=== PATIENT | male | born 1945 | race Caucasian/White ===

== ENCOUNTER 2017-09-11 07:38 | Day surgery (SDC) | payer MEDICARE, OTHER ==
[2017-09-11] MEDS ORDERED: IV LACTATED RINGERS SOLUTION 1,000 ML BAG IV ONE (07:39)
[2017-09-11] MEDS ORDERED: PROPOFOL 200 MG/20 ML BOTTLE IV ONE (07:39)
[2017-09-11] MEDS ORDERED: CEFAZOLIN 1 G VIAL MC ONE (07:39)
[2017-09-11] MEDS ORDERED: EPHEDRINE SULFATE 50 MG/ML AMPUL MC ONE (07:39)
[2017-09-11] MEDS ORDERED: LIDOCAINE HCL 2% 20 ML VIAL MC ONE (07:39)
[2017-09-11] MEDS ORDERED: ONDANSETRON 4 MG/2 ML VIAL IV ONE (07:39)
[2017-09-11 08:26] LABS: BASOPHILS % (AUTO) 1.1 % (0.0-2.0); EOSINOPHILS # (AUTO) 0.1 K/uL (0.0-0.7); EOSINOPHILS % (AUTO) 2.5 % (0.0-7.0); HEMATOCRIT 45.1 % (36.7-47.1); HEMOGLOBIN 15.3 g/dL (12.5-16.3); LYMPHOCYTES # (AUTO) 1.7 K/uL (20.0-40.0); LYMPHOCYTES % (AUTO) 39.4 % (20.5-51.5); MEAN CORPUSCULAR HEMOGLOBIN 31.2 uug (23.8-33.4); MEAN CORPUSCULAR HGB CONC 34 g/dL (32.5-36.3); MONOCYTES # (AUTO) 0.4 K/uL (2.0-10.0); MONOCYTES % (AUTO) 8.2 % (0.0-11.0); NEUTROPHILS # (AUTO) 2.2 K/uL (1.8-8.9); NEUTROPHILS % (AUTO) 48.8 % (38.5-71.5); PLATELET COUNT (AUTO) 94 K/uL (152-348); WHITE BLOOD COUNT (AUTO) 4.4 K/uL (3.6-10.2)
[2017-09-11 08:35] LABS: CARBON DIOXIDE 23 mmol/L (21-32); CHLORIDE 109 mmol/L (98-107); CREATININE 1.2 mg/dL (0.6-1.3); GLUCOSE 107 mg/dL (74-106); POTASSIUM 3.8 mmol/L (3.5-5.1); UREA NITROGEN, BLOOD 27 mg/dL (7-18)
[2017-09-11] MEDS ORDERED: FENTANYL CITRATE 100 MCG/2 ML AMPUL ONE ×2 (08:59→12:04)
[2017-09-11] MEDS ORDERED: MIDAZOLAM HCL 2 MG/2 ML VIAL ONE ×2 (09:00→09:52)
[2017-09-11 09:19] LABS: EOSINOPHILS % (MANUAL) 4 % (0-8); LYMPHOCYTES % (MANUAL) 36 % (20-40); MONOCYTES % (MANUAL) 6 % (2-10); NEUTROPHILS % (MANUAL) 54 % (42-75)
[2017-09-11] MEDS ORDERED: BUPIVACAINE/EPI PF 0.5% 10 ML VIAL ONE (09:40)
[2017-09-11] MEDS ORDERED: LIDOCAINE-MPF 1% 5 ML AMPUL ONE (09:41)
[2017-09-11] MEDS ORDERED: COCAINE HCL 4% TP ONE (09:41)
[2017-09-11] MEDS ORDERED: SEVOFLURANE 250 ML BOTTLE ONE (09:57)
[2017-09-11] MEDS ORDERED: MINERAL OIL/PETROLAT OPHT OINT 3.5 GM TUBE ONE (10:28)
[2017-09-11] MEDS ORDERED: NEO/POLYMYX B/DEXAME OPHT OINT 3.5 GM TUBE ONE (10:28)
[2017-09-11] MEDS ORDERED: BALANCED SALT IRRIG SOLN COMB2 15 ML IRRIG.SOLN ONE (10:45)
== END 2017-09-11 13:03 | disposition home or self-care (01) ==
LOC: DS 07:38
PROVIDERS: ATTEND Dermatology MOHS-Micrographic Surgery
DX: H04.552 Acquired stenosis of left nasolacrimal duct (principal); E78.5 Hyperlipidemia, unspecified; I12.9 Hypertensive chronic kidney disease with stage 1 through stage 4 chronic kidney disease, or unspecified chronic kidney disease; E11.22 Type 2 diabetes mellitus with diabetic chronic kidney disease; N18.3 Chronic kidney disease, stage 3 (moderate); E11.40 Type 2 diabetes mellitus with diabetic neuropathy, unspecified; D75.1 Secondary polycythemia; Z79.4 Long term (current) use of insulin; I25.10 Atherosclerotic heart disease of native coronary artery without angina pectoris; N40.0 Benign prostatic hyperplasia without lower urinary tract symptoms; Z68.30 Body mass index [BMI] 30.0-30.9, adult; H04.209 Unspecified epiphora, unspecified side
CPT/HCPCS: 36415; 71010; 85025; 85730; A4649; A4663; J0690; J2250; J2405; J3010; J3490; J7030; J7120